=== PATIENT | male | born 1930 | race Caucasian/White ===

== ENCOUNTER 2016-03-15 16:23 | Emergency (ER) | payer OTHER ==
[~2016-03-15] VITALS: Ht 177.8 cm; Wt 95.3 kg
[~2016-03-15 16:23] MED LIST: ACETTAB85 PO; ATOR20TA50 PO; BACL20TA PO; DOCU-94 PO; FURO20TA3 PO; GABA300C8 PO; GLIP-115 PO; LOSA100T27 PO; METO25TA5 PO; WARF2TAB49 PO
[2016-03-15] MEDS ORDERED: SODIUM CHLORIDE 0.9% 250 ML IV ONE (17:26)
[2016-03-15] MEDS ORDERED: MORPHINE SULFATE 4 MG/ML SYRG IV ONE ×2 (17:30→21:00)
[2016-03-15] MEDS ORDERED: ONDANSETRON HCL 4 MG/2 ML VIAL IV ONE (17:30)
[2016-03-15] MEDS ORDERED: FOLITAB22 PO (17:45)
[2016-03-15] MEDS ORDERED: OMEP20CA5 PO (17:45)
[2016-03-15] MEDS ORDERED: TAM04C PO (17:45)
[2016-03-15 18:18] LABS: Basophils # (auto) 0.1 uL; Basophils % (auto) 0.5 % (0.0-2.0); DEFINITIVE VIEW TRANSMISSION; Eosinophils # (auto) 0.5 uL; Eosinophils % (auto) 4.8 % (0.0-7.0); Hematocrit 37.9 % (41.0-53.0); Lymphocytes # (auto) 2.5 uL; Lymphocytes % (auto) 22.8 % (10.0-50.0); Mean Corpuscular Hemoglobin 32.1 pg (28.0-32.0); Mean Corpuscular Hgb Conc. 31.6 g/dL (32.0-36.0); Mean Corpuscular Volume 101.6 fL (80.0-100.0); Mean Platelet Volume 9.5 fL (7.4-10.4); Monocytes # (auto) 1.2 uL; Monocytes % (auto) 11.3 % (0.0-12.0); Neutrophils # (auto) 6.6 uL; Neutrophils % (auto) 60.6 % (37.0-80.0); Platelet Count (auto) 198 10^3/uL (140-450); Red Cell Distribution Width 15.4 % (11.6-16.0); White Blood Cell 10.9 10^3/uL (4.4-10.8)
[2016-03-15 18:29] LABS: BUN/Creatinine Ratio 19.1; Bilirubin, Total 0.9 mg/dL (0.2-1.0); Calcium 8.6 mg/dL (8.5-10.1); Magnesium 1.9 mg/dL (1.6-2.6); Potassium 3.9 mmol/L (3.5-5.1); Total Protein 6.6 g/dL (6.4-8.2)
[2016-03-15 18:31] LABS: Partial Thromboplastin Time 31.5 sec (22.64-33.71)
[2016-03-15 18:47] LABS: INR 1.88 (0.9-1.15); Prothrombin Time 19.4 sec (9.37-12.3)
[2016-03-15 19:52] LABS: Urine Bilirubin Negative (Negative); Urine Blood TRACE /uL (Negative); Urine Color Yellow (Yellow); Urine Glucose Normal (Normal); Urine Hyaline Cast FEW /lpf (0 - 2); Urine Ketone Negative (Negative); Urine Mucus FEW (None Seen); Urine Nitrite Negative (Negative); Urine RBC 7 /hpf (0 - 3); Urine Urobilinogen Normal (Negative); Urine pH 5.5 (5.0-8.0)
[2016-03-15 20:19] LABS: Macrocytosis Slight; Platelet Estimate Adequate
[2016-03-15 20:55] VITALS: BP 120/56
== END 2016-03-15 21:21 | disposition short-term general hospital (02) ==
LOC: EDUNIT# 16:23 → ER 16:27
DX: S72.144A Nondisplaced intertrochanteric fracture of right femur, initial encounter for closed fracture (principal); S32.591A Other specified fracture of right pubis, initial encounter for closed fracture; E11.9 Type 2 diabetes mellitus without complications; E78.5 Hyperlipidemia, unspecified; I10 Essential (primary) hypertension; M10.9 Gout, unspecified; Z79.899 Other long term (current) drug therapy; Z91.81 History of falling; W19.XXXA Unspecified fall, initial encounter; Y93.89 Activity, other specified; Y99.8 Other external cause status; Y92.89 Other specified places as the place of occurrence of the external cause
CPT/HCPCS: 36415; 51702; 71010; 73502; 80053; 81001; 83735; 85025; 85610; 85730; 93005; 96361; 96374; 96375; 99285; J2270; J2405; J7050

== ENCOUNTER 2016-08-15 22:39 | Emergency (ER) | payer OTHER ==
[~2016-08-15] VITALS: Ht 175.3 cm; Wt 99.8 kg
[~2016-08-15 22:39] MED LIST changes: -ACETTAB85 PO; -BACL20TA PO; +FOLITAB22 PO; +GABA-497 PO; -GABA300C8 PO; -GLIP-115 PO; +OMEP20CA74 PO; +TAM04C PO
[2016-08-15 23:03] LABS: Basophils # (auto) 0.1 uL; Basophils % (auto) 0.8 % (0.0-2.0); CONDITION Y; DEFINITIVE SEE PRINTOUT; Eosinophils # (auto) 0.4 uL; Eosinophils % (auto) 3.6 % (0.0-7.0); Hematocrit 35.2 % (41.0-53.0); Hemoglobin 11.7 g/dL (13.5-17.5); Lymphocytes # (auto) 1.4 uL; Mean Corpuscular Hemoglobin 35.4 pg (28.0-32.0); Mean Corpuscular Hgb Conc. 33.1 g/dL (32.0-36.0); Mean Platelet Volume 7.8 fL (7.4-10.4); Monocytes % (auto) 9.7 % (0.0-12.0); Neutrophils # (auto) 7.1 uL; Neutrophils % (auto) 71.9 % (37.0-80.0); Platelet Count (auto) 277 10^3/uL (140-450); Red Cell Distribution Width 15.4 % (11.6-16.0); White Blood Cell 9.9 10^3/uL (4.4-10.8)
[2016-08-15 23:35] LABS: Albumin 2.9 g/dL (3.4-5.0); Anion Gap 13 (5-15); BUN/Creatinine Ratio 13.6; Blood Urea Nitrogen 15 mg/dL (7-18); Calcium 8.7 mg/dL (8.5-10.1); Carbon Dioxide 23 mmol/L (21-32); Chloride 104 mmol/L (98-107); GFR African American 81 mL/min; GFR Non-African American 67 mL/min; Glucose 134 mg/dL (74-106); Potassium 3.7 mmol/L (3.5-5.1); Sodium 140 mmol/L (136-145)
[2016-08-15 23:36] VITALS: BP 146/69
[2016-08-15 23:41] LABS: B-Type Natriuretic Peptide 135.39 pg/mL (0-100)
[2016-08-15 23:50] LABS: Alkaline Phosphatase 143 U/L (45-117); Aspartate Aminotransferase 31 U/L (15-37); Bilirubin, Total 0.8 mg/dL (0.2-1.0); Total Protein 6.4 g/dL (6.4-8.2)
[2016-08-16 00:04] LABS: Temperature: 22.1 C (20.0-25.0)
== END 2016-08-16 03:26 | disposition home or self-care (01) ==
LOC: EDBD 22:39 → ER 22:39
DX: Z04.1 Encounter for examination and observation following transport accident (principal); R07.89 Other chest pain; I11.0 Hypertensive heart disease with heart failure; I50.9 Heart failure, unspecified; E11.9 Type 2 diabetes mellitus without complications; K21.9 Gastro-esophageal reflux disease without esophagitis; M10.9 Gout, unspecified; Z79.01 Long term (current) use of anticoagulants; W06.XXXA Fall from bed, initial encounter; Y93.89 Activity, other specified; Y99.8 Other external cause status; Y92.89 Other specified places as the place of occurrence of the external cause
CPT/HCPCS: 36415; 70450; 71010; 72125; 80053; 80320; 83880; 84484; 85025; 93005

== ENCOUNTER 2017-05-22 11:46 | Emergency (ER) | payer OTHER ==
[~2017-05-22] VITALS: Ht 172.7 cm; Wt 72.6 kg
[~2017-05-22 11:46] MED LIST changes: -GABA-497 PO; +GABA300C10 PO
[2017-05-22 14:10] LABS: Basophils # (auto) 0 uL; Eosinophils # (auto) 0.1 uL; Hemoglobin 14.7 g/dL (13.5-17.5); Mean Corpuscular Volume 106.3 fL (80.0-100.0); Nucleated Red Blood Cells % 0.1 %
[2017-05-22 14:12] LABS: Basophils % (auto) 0.4 % (0.0-2.0); Eosinophils % (auto) 0.7 % (0.0-7.0); Hematocrit 43.2 % (41.0-53.0); Lymphocytes # (auto) 1.3 uL; Lymphocytes % (auto) 11.7 % (10.0-50.0); Mean Corpuscular Hemoglobin 36.2 pg (28.0-32.0); Mean Corpuscular Hgb Conc. 34.1 g/dL (32.0-36.0); Monocytes % (auto) 9.3 % (0.0-12.0); Neutrophils # (auto) 8.7 uL; Neutrophils % (auto) 77.9 % (37.0-80.0); Platelet Count (auto) 119 10^3/uL (140-450); Red Blood Cells 4.07 10^6/uL (4.5-5.90); Red Cell Distribution Width 13.8 % (11.8-14.3); White Blood Cell 11.1 10^3/uL (4.4-10.8)
[2017-05-22 14:31] LABS: Alanine Aminotransferase 34 U/L (16-61); Albumin 3.1 g/dL (3.4-5.0); Alkaline Phosphatase 199 U/L (45-117); Anion Gap 6 (5-15); Aspartate Aminotransferase 35 U/L (15-37); BUN/Creatinine Ratio 11.5; Bilirubin, Total 1.6 mg/dL (0.2-1.0); Blood Urea Nitrogen 13 mg/dL (7-18); Calcium 8.7 mg/dL (8.5-10.1); Carbon Dioxide 27 mmol/L (21-32); Chloride 107 mmol/L (98-107); GFR African American 79 mL/min; GFR Non-African American 65 mL/min; Glucose 121 mg/dL (74-106); Magnesium 1.9 mg/dL (1.6-2.6); Sodium 140 mmol/L (136-145); Total Protein 6.8 g/dL (6.4-8.2)
[2017-05-22] MEDS ORDERED: SODIUM CHLORIDE 0.9% 500 ML IV ONE (18:30)
[2017-05-22 19:45] VITALS: BP 105/64
== END 2017-05-22 20:16 | disposition short-term general hospital (02) ==
LOC: ER 11:46 → EDBD 11:46 → ER 20:16
DX: S82.492A Other fracture of shaft of left fibula, initial encounter for closed fracture (principal); I48.91 Unspecified atrial fibrillation; I50.9 Heart failure, unspecified; E11.9 Type 2 diabetes mellitus without complications; K21.9 Gastro-esophageal reflux disease without esophagitis; E78.5 Hyperlipidemia, unspecified; I11.0 Hypertensive heart disease with heart failure; R55 Syncope and collapse; M10.9 Gout, unspecified; X58.XXXA Exposure to other specified factors, initial encounter; Z90.49 Acquired absence of other specified parts of digestive tract; Z79.899 Other long term (current) drug therapy; Z79.01 Long term (current) use of anticoagulants; Y93.89 Activity, other specified; Y92.89 Other specified places as the place of occurrence of the external cause; Y99.8 Other external cause status
CPT/HCPCS: 29505; 36415; 73564; 73700; 80053; 83735; 84484; 85025; 93005; 94761